=== PATIENT | male | born 1995 | race African-American/Black ===

== ENCOUNTER 2024-02-27 02:10 | Emergency (ER) | payer MEDICAID, OTHER ==
[~2024-02-27] VITALS: Ht 182.9 cm; Wt 100.0 kg
[2024-02-27 02:12] VITALS: O2SAT 100
[2024-02-27] MEDS ORDERED: ALBU90AE INH (02:48)
[2024-02-27] MEDS ORDERED: ALBU2.5V13 NEB (02:48)
[2024-02-27] MEDS ORDERED: P20 MT (02:48)
[2024-02-27 02:53] VITALS: BP 146/77; PULSE 71; RESP 18; TEMP 36.44736; O2SAT 100
[2024-02-27] MEDS: PREDNISONE 20MG TABLET PO ONE (03:38)
== END 2024-02-27 03:50 | disposition home or self-care (01) ==
LOC: ER 02:10
DX: J45.901 Unspecified asthma with (acute) exacerbation (principal); R00.0 Tachycardia, unspecified
CPT/HCPCS: 99283; J7512

== ENCOUNTER 2024-10-01 17:33 | Emergency (ER) | payer OTHER ==
[~2024-10-01] VITALS: Ht 185.4 cm; Wt 127.0 kg
[~2024-10-01 17:33] MED LIST: ALBU2.5V13 NEB; ALBU90AE INH; P20 MT
[2024-10-01 17:38] VITALS: TEMP 36.6
[2024-10-01] MEDS: METHYLPREDNISOLONE SOD SUCC 125MG/2ML (ACT-O-VIAL) IM ONE (18:00)
[2024-10-01] MEDS: ALBUTEROL (0.083%) 2.5MG/3ML NEB HHN SCH (18:01)
[2024-10-01 18:02] VITALS: PULSE 78; RESP 20; O2SAT 99
[2024-10-01] MEDS ORDERED: P20 PO (18:37)
[2024-10-01] MEDS ORDERED: ALBU18HF2 IH (18:37)
[2024-10-01 18:49] VITALS: BP 131/79; PULSE 75; RESP 22; O2SAT 97
== END 2024-10-01 18:50 | disposition home or self-care (01) ==
LOC: ER 17:33
DX: J45.901 Unspecified asthma with (acute) exacerbation (principal); Z79.899 Other long term (current) drug therapy
CPT/HCPCS: 94640; 96372; 99283; J2919; Z7610 ×3; 94070; 94664; 98960

== ENCOUNTER 2024-12-06 13:49 | Emergency (ER) | payer OTHER ==
[~2024-12-06] VITALS: Ht 188 cm; Wt 132.0 kg
[~2024-12-06 13:49] MED LIST changes: +ALBU18HF2 IH; +P20 PO
[2024-12-06 13:58] VITALS: O2SAT 99
[2024-12-06] MEDS ORDERED: TETRACAINE 0.5% OPHTH DROPS 4ML LEFTEYE ONE (14:15)
[2024-12-06] MEDS ORDERED: FLUORESCEIN SODIUM 1MG/STRIP LEFTEYE ONE (14:15)
[2024-12-06] MEDS ORDERED: SODI15DR7 RIGHTEYE (17:56)
[2024-12-06] MEDS ORDERED: NEO/POLYMYX B SULF/DEXAMETH 0.1% OPHTH SUSP 5ML RIGHTEYE SCH (18:00)
[2024-12-06] MEDS: NEO/POLYMYX B SULF/DEXAMETH OPHTH OINT 3.5GM RIGHTEYE SCH (18:30)
[2024-12-06 18:35] VITALS: BP 143/84; PULSE 85; RESP 18; TEMP 36.9; O2SAT 99
[2024-12-06] MEDS: FLUORESCEIN SODIUM 1MG/STRIP LEFTEYE SCH (18:35)
[2024-12-06] MEDS: TETRACAINE 0.5% OPHTH DROPS 4ML LEFTEYE SCH (18:35)
== END 2024-12-06 18:36 | disposition home or self-care (01) ==
LOC: ER 13:49
DX: H16.9 Unspecified keratitis (principal); J45.909 Unspecified asthma, uncomplicated; Z79.52 Long term (current) use of systemic steroids; Z79.899 Other long term (current) drug therapy
CPT/HCPCS: 99283; Z7610 ×3; A4565